=== PATIENT | male | born 1950 | race Caucasian/White ===

== ENCOUNTER → 2017-05-31 | Outpatient (CLI) | payer OTHER ==
[2017-05-31 14:15] LABS: ESTIMATED AVERAGE GLUCOSE 103 mg/dl; HA1C FLAG Normal (Normal)
[2017-05-31 14:18] LABS: ALT/SGPT 55 U/L (12-78); BLOOD UREA NITROGEN 19 mg/dl (7-18); BUN/CREATININE RATIO 19.1 (10-20); CALCIUM 9.3 mg/dl (8.5-10.1); CARBON DIOXIDE 27 mmol/L (21-32); CHLORIDE 107 mmol/L (98-107); CREATININE 0.97 mg/dl (0.60-1.40); GLUCOSE 119 mg/dl (70-99); SODIUM 141 mmol/L (136-145)
[2017-05-31 14:19] LABS: HEPATITIS B AB NEG
[2017-05-31 14:21] LABS: ALKALINE PHOSPHATASE 63 U/L (45-117); AST/SGOT 25 U/L (15-37)
== END | disposition home or self-care (01) ==
LOC: C.LABMFLN 07:33
PROVIDERS: ATTEND Internal Medicine
DX: R73.03 Prediabetes (principal); R74.0 Nonspecific elevation of levels of transaminase and lactic acid dehydrogenase [LDH]